=== PATIENT | female | born 1955 | race African-American/Black ===

== ENCOUNTER 2017-02-02 08:54 | Emergency (ER) | payer OTHER ==
[~2017-02-02] VITALS: Ht 152.4 cm; Wt 45.4 kg
[~2017-02-02 08:54] MED LIST: [UNRECOGNIZED DRUG - REMARK]
[2017-02-02 12:20] VITALS: BP 118/69
== END 2017-02-02 12:23 | disposition home or self-care (01) ==
LOC: EME 08:54
DX: S16.1XXA Strain of muscle, fascia and tendon at neck level, initial encounter (principal); S80.12XA Contusion of left lower leg, initial encounter; S93.401A Sprain of unspecified ligament of right ankle, initial encounter; S56.012A Strain of flexor muscle, fascia and tendon of left thumb at forearm level, initial encounter; Y04.8XXA Assault by other bodily force, initial encounter; H91.90 Unspecified hearing loss, unspecified ear
CPT/HCPCS: 72050; 73130; 73140; 73610; 73630; 99281; 99284